=== PATIENT | male | born 1990 | race Caucasian/White ===

== ENCOUNTER 2017-12-17 18:54 | Emergency (ER) | payer BC, OTHER ==
[~2017-12-17] VITALS: Ht 188 cm; Wt 83.9 kg
[2017-12-17] MEDS ORDERED: NKM (19:13)
[2017-12-17 19:21] VITALS: BP 117/77
[2017-12-17] MEDS ORDERED: Tetanus/Diptheria/Pertussis Vaccine 0.5ml Syr IM ONE (19:30)
[2017-12-17] MEDS ORDERED: Neosporin Oint Ud Pkt TOP ONE (19:30)
[2017-12-17] MEDS ORDERED: ACETAMINOPHEN-1 EAC1 ORAL (20:10)
[2017-12-17] MEDS ORDERED: IBUPROFEN600 MG ORAL (20:10)
[2017-12-17 20:18] VITALS: BP 117/77
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
--- NOTE | 2017-12-18 12:29 | Diagnostic Imaging Report ---
Indication: Pain status post injury Technique: XRAY Shoulder Compl L Comparison: None Findings: Evaluation limited due to suboptimal positioning, particularly on the transscapular Y view. There is a fracture of the distal aspect of the clavicle with overlying soft tissue swelling. Sedation for potential ligamentous injury limited due to suboptimal positioning however suspected. Glenohumeral joint without dislocation. Imaged portions of the left lung clear. No radiopaque foreign body identified. IMPRESSION: Limited evaluation with suboptimal positioning. Fracture of the distal clavicle. Recommend orthopedic referral. Consider MRI for assessment of possible ligamentous injury.
== END 2017-12-17 20:19 | disposition home or self-care (01) ==
LOC: EMR 19:30
DX: S42.035A Nondisplaced fracture of lateral end of left clavicle, initial encounter for closed fracture (principal); V28.4XXA Motorcycle driver injured in noncollision transport accident in traffic accident, initial encounter; Y93.89 Activity, other specified; Y92.89 Other specified places as the place of occurrence of the external cause; Z23 Encounter for immunization
CPT/HCPCS: 90471; 90715; 99283